=== PATIENT | male | born 1970 | race Two or more races ===

== ENCOUNTER 2021-04-07 19:48 | Emergency (ER) | payer MEDICARE, OTHER ==
[~2021-04-07] VITALS: Ht 175.3 cm; Wt 72.6 kg
--- NOTE | 2021-04-07 20:35 | NUR ---
PT BIBSISTER FROM HOME, NEEDS MEDICAL CLEARANCE FOR VOLUNTARY ADMISSION [place] S/I H/I SENT BY [facility]. PT A/OX4. TOLERATING R/A WELL WITH NO SOB. PT IN GOWN AND BELONGINGS PLACED IN LOCKER. SAFETY 1:[address]
--- NOTE | 2021-04-07 21:10 | NUR ---
URINE COLLECTED AND SENT TO LAB
--- NOTE | 2021-04-07 21:12 | NUR ---
COVID SWAB COLLECTED AND SENT TO LAB. RANGE MOUNTER AT PT'S BEDSIDE
[2021-04-07 21:21] LABS: BASOPHILS # (AUTO) 0.1 K/uL (0.0-0.2); BASOPHILS % (AUTO) 0.6 % (0.0-2.0); EOSINOPHILS % (AUTO) 1.8 % (0.0-6.0); HEMATOCRIT 25 % (39-51); HEMOGLOBIN 8.1 g/dL (13.5-17.5); LYMPHOCYTES # (AUTO) 2.3 K/uL (0.8-4.8); LYMPHOCYTES % (AUTO) 17.7 % (20.0-44.0); MEAN CORPUSCULAR HGB CONC 33 g/dl (31.0-36.0); MEAN CORPUSCULAR VOLUME 85 fL (80-96); MONOCYTES # (AUTO) 1.4 K/uL (0.1-1.30); NEUTROPHILS # (AUTO) 9.1 K/uL (1.8-8.9); NEUTROPHILS % (AUTO) 68.9 % (43.0-81.0); PLATELET COUNT (AUTO) 513 K/uL (150-450); RED BLOOD CELL COUNT(AUTO) 2.91 MIL/uL (4.5-6.0); WHITE BLOOD COUNT (AUTO) 13.2 K/uL (4.3-11.0)
[2021-04-07 21:35] LABS: BILIRUBIN,URINE NEGATIVE (NEGATIVE); COLOR,URINE YELLOW (YELLOW); LEUKOCYTE ESTERASE ,URINE SMALL (NEGATIVE); NITRITE, URINE NEGATIVE (NEGATIVE); PROTEIN,URINE NEGATIVE (NEGATIVE); UGLUCOSE NEGATIVE (NEGATIVE); UROBILINOGEN,URINE 0.2 EU/dL (0.2)
[2021-04-07 21:40] LABS: CALCIUM, SERUM 8.8 mg/dL (8.5-10.1); CARBON DIOXIDE 26 mmol/L (21-32); CHLORIDE 97 mmol/L (98-107); CREATININE 2.1 mg/dL (0.6-1.3); GLUCOSE 137 mg/dL (74-106); POTASSIUM 4.8 mmol/L (3.5-5.1); SODIUM SERUM 131 mmol/L (136-145); UREA NITROGEN, BLOOD 49 mg/dL (7-18)
[2021-04-07 21:41] LABS: BACTERIA,URINE 1+ /HPF (None Seen); WBC,URINE 21-50 /HPF (0-3)
[2021-04-07 21:46] LABS: ALANINE AMINOTRANSFERASE 37 U/L (12-78); ALCOHOL, BLOOD < 3 mg/dL (0-0); ALKALINE PHOSPHATASE 83 U/L (46-116); ASPARTATE AMINOTRANSFERASE 24 U/L (15-37); BILIRUBIN,DIRECT 0.1 mg/dL (0.0-0.2); BILIRUBIN,TOTAL 0.2 mg/dL (0.2-1.0); TOTAL PROTEIN, SERUM 8.5 g/dL (6.4-8.2)
[2021-04-07 21:48] LABS: BAND % (MANUAL) 2 % (0.0-5.0); EOSINOPHILS % (MANUAL) 3 % (0-4); LYMPHOCYTES % (MANUAL) 27 % (16-48); MONOCYTES % (MANUAL) 6 % (0-11.0); NEUTROPHILS % (MANUAL) 62 (42-76)
[2021-04-07 21:50] LABS: ACETAMINOPHEN 0 ug/ml (10-30)
--- NOTE | 2021-04-08 00:24 | NUR ---
CLINICALS FAXED TO INTAKE
--- NOTE | 2021-04-08 01:34 | NUR ---
ADLS DONE; PT AMBULATORY TO RESTROOM WITH STEADY GAIT
--- NOTE | 2021-04-08 03:28 | NUR ---
PT IS NOT ACCEPTED D/T PT INSURANCE NOT CONTRACTED WITH [facility]
--- NOTE | 2021-04-08 05:11 | NUR ---
Called back So [facility] intake and they morning patient access will reverify insurance for authorazation. So [facility] Intake will call back for update
--- NOTE | 2021-04-08 07:18 | NUR ---
UPDATED JACKELIN SISTER VIA PHONE CALL
--- NOTE | 2021-04-08 08:41 | NUR ---
CALLED [facility] FOR FOLLOW UP. PER BOOKER SHE WILL CALL HOUSE SUP TO CONFIRM IF PT IS GOOD TO STAY AT [facility].
--- NOTE | 2021-04-08 09:43 | NUR ---
JACKELIN PT SISTER ETA 1 HR.
[2021-04-08] MEDS ORDERED: OLAN10TA3 PO ×2 (09:44→09:50)
[2021-04-08] MEDS ORDERED: OLANZAPINE 5 MG TABLET ONE (09:45)
[2021-04-08] MEDS ORDERED: OLANZAPINE 5 MG TABLET PO ONE (10:00)
--- NOTE | 2021-04-08 10:49 | NUR ---
PT SISTER AT BEDSIDE FOR PT DISCHARGED.
[2021-04-08 10:50] VITALS: BP 117/61
== END 2021-04-08 10:50 | disposition home or self-care (01) ==
LOC: ER 19:51
DX: F25.9 Schizoaffective disorder, unspecified (principal); E11.9 Type 2 diabetes mellitus without complications; Z20.822 Contact with and (suspected) exposure to COVID-19; Z91.51 Personal history of suicidal behavior
CPT/HCPCS: 36415; 80048; 80076; 80143; 80307; 80320; 81001; 85007; 85025; 87086; 87426; 99284; C9803; G0480